=== PATIENT | male | born 1960 | race Caucasian/White ===

== ENCOUNTER 2020-06-11 09:14 | Emergency (ER) | payer BC, SELFPAY ==
[~2020-06-11] VITALS: Ht 177.8 cm; Wt 80.0 kg
--- NOTE | 2020-06-11 09:40 | NUR ---
pt to room a04 noted deformity and pain in the L shoulder good distal cms
[2020-06-11] MEDS ORDERED: ONDANSETRON 2MG/ML, 2ML ONE (09:43)
[2020-06-11] MEDS ORDERED: HYDROmorphone 1 MG/ML, 1ML INJ ONE (09:43)
[2020-06-11] MEDS ORDERED: PROPOFOL 10 MG/ML, 20ML ONE (09:56)
[2020-06-11] MEDS ORDERED: ONDANSETRON 2MG/ML, 2ML IVPush ONE (10:00)
[2020-06-11] MEDS ORDERED: HYDROmorphone 1 MG/ML, 1ML INJ IVPush PRN (10:00)
[2020-06-11] MEDS ORDERED: SODIUM CHLORIDE FLUSH 10ML SYR IVF ONE (10:00)
[2020-06-11] MEDS ORDERED: PROPOFOL 10 MG/ML, 20ML IVPush ONE (10:30)
--- NOTE | 2020-06-11 10:58 | NUR ---
MEDS GIVEN PER ORDERS PT SEDATD AT [address] ELLIOTT AT THE BS L SHOULDER REDUCED AT 1006 PT ARROUSABLE AT 1015 REMAINS SLEEPING AT 1100 WITH STABLE VITALS 02 SATS REMAINED ABOVE 98% THROUGHOUT SHOULDER IMOBLIZER PLACED WHILE PT UNDER SEDATION
[2020-06-11 13:50] VITALS: BP 168/99
== END 2020-06-11 13:52 | disposition home or self-care (01) ==
LOC: ED 13:40
DX: S43.005A Unspecified dislocation of left shoulder joint, initial encounter (principal); W19.XXXA Unspecified fall, initial encounter; Y93.89 Activity, other specified; Y92.098 Other place in other non-institutional residence as the place of occurrence of the external cause; Y99.8 Other external cause status
CPT/HCPCS: 23650; 73020; 73030; 96374; 96375; 99152; 99285; J1170; J2405; J2704; 99284